=== PATIENT | male | born 1965 | race Caucasian/White ===

== ENCOUNTER 2018-10-28 10:36 | Emergency (ER) | payer OTHER, SELFPAY ==
[2018-10-28 10:44] VITALS: BP 144/97; PULSE 73; RESP 16; TEMP 36.6; O2SAT 98
--- NOTE | 2018-10-28 10:48 | DI.RAD_ITS ---
SYMPTOMS/DIAGNOSIS: RIGHT RIB PAIN S/P FALL PA CHEST AND RIGHT RIBS: There are no prior comparison exams. The heart size is at the upper limits of normal. The aorta appears tortuous. The lungs are clear. No pneumothorax is seen. A marker was placed over the lower right ribs in the area of the patient' s pain posteriorly. There is suboptimal penetration of the lower ribs. On one oblique view, there is a nondisplaced fracture of the 11th rib and a question of a fracture of the anterior 7th rib. IMPRESSION: Nondisplaced fractures of the right 11th and 7th ribs. No evidence of pneumothorax.
[2018-10-28] MEDS: HYDROcodone 5/Acetaminophen 325 TAB PO (10:50)
[2018-10-28] MEDS: Lidocaine 5% Patch 1 PATCH TP (11:00)
--- NOTE | 2018-10-28 11:05 | ED.GENADUL_ITS ---
Discharge Plan Disposition Patient Disposition: HOME Condition: Stable Discharge Details Chief Complaint: Chest/Rib Clinical Impression: Closed traumatic nondisplaced fracture of rib Primary Care Provider: Julita Garrett ED Provider: Brandon Rodríguez Home Meds and New Rx's Prescriptions: New hydrocodone-acetaminophen [[place]] 5-325 mg tablet 1 tab PO Q6H PRN (Reason: pain, severe) Qty: 8 RF: 0 lidocaine 5 % adhesive patch,medicated 1 patch TP Q12H PRN PRN (Reason: pain) Qty: 30 RF: 0 ibuprofen [IBU] 600 mg tablet 600 mg PO QID PRN (Reason: pain) Qty: 20 RF: 0 Discontinued ibuprofen 100 MG tablet 200 mg PO PRN RF: 0 Discharge Instructions Instructions: Rib Fracture (ED) Additional Instructions: Return immediately to the emergency department for any severe shortness of breath, difficulty breathing, fever chills, or worsening of symptoms. Otherwise take medication as prescribed and follow-up with your primary care provider as needed. Stand Alone Forms: Work Release Referrals: Julita Garrett [Primary Care Provider] - (As needed for reassessment) Discharge Data Discharge Date/Time-TO BE ENTERED AT DEPARTURE: 10/28/18 12:39 Medical Decision Making Patient presents the emergency department for right lateral rib pain after fall. Patient has tenderness to anterior posterior compression along with tenderness to mid axillary lower ribs approximately 7 through 10 with compression noting some mild crepitus felt. Lung sounds are clear throughout all lung ospina but plan on doing radiological imaging for concern of fracture. Pending results patient given lidocaine patch and [place]. Review of radiological imaging and speaking with the radiologist there seems to be possible nondisplaced fractures of ribs 7 and 11 that are only seen in one view. Given this finding along with some mild crepitus patient diagnosed with rib fracture nondisplaced, given prescription for limited opiate and lidocaine patches. Patient otherwise encouraged to utilize [id number] pain therapy as needed for discomfort. Patient given incentive spirometer and teaching in the emergency department and encouraged to return for any new or worsening symptoms. After discussion of diagnosis and plan of care patient has no further needs, questions, or concerns and states clear understanding to return to the emergency department for any worsening symptoms. HPI General Mode of arrival: ambulatory . Date/Time Provider Initiated Documentation: 10/28/18 10:37 . Limitations to Documentation: no limitations . Information obtained by: patient and RN notes reviewed . History of Present Illness 52 year old M presents to the emergency department with the chief complaint of fall with right rib pain, described as moderate, with intensity rated at 4. Quality is described as aching, and is localized to the chest (right ribs) . and it has been constant. No relieving factors improve symptom(s), Movement worsens symptoms (And deep breathing) . Patient notes no other symptoms.. Patient did receive the following treatments prior to arrival, none Related Data Home Medications Medication Instructions Recorded Confirmed hydrocodone-acetaminophen [[place]] 1 tab PO Q6H PRN #8 tab 10/28/18 ibuprofen [IBU] 600 mg PO QID PRN #20 tab 10/28/18 lidocaine 1 patch TP Q12H PRN PRN #30 each 10/28/18 Previous Rx's Medication Instructions Recorded hydrocodone-acetaminophen [[place]] 1 tab PO Q6H PRN #8 tab 10/28/18 ibuprofen [IBU] 600 mg PO QID PRN #20 tab 10/28/18 lidocaine 1 patch TP Q12H PRN PRN #30 each 10/28/18 Allergies Allergy/AdvReac Type Severity Reaction Status Date / Time No Known Allergies Allergy Unverified 10/28/18 10:47 General Stated Complaint: Chest/Rib ANTONIO: 3 Review of Systems Constitutional Denies chills, Denies fever(s), Denies frequent falls and Denies headache(s) ENT Denies vertigo, Denies dizziness and Denies headache(s) Cardiovascular Reports as per HPI, Reports chest pain (Right side), Denies syncope, Denies rapid heart rate and Denies irregular heart rhythm Respiratory Reports as per HPI, Reports pain on inspiration and Reports pain with cough Neurologic Denies confusion, Denies vertigo, Denies dizziness, Denies syncope, Denies frequent falls and Denies headache(s) Psychiatric Denies confusion PFSH Jugular vein thrombosis Tobacco abuse Colonoscopy - MAC (12/26/17) Medical History Jugular vein thrombosis Tobacco abuse Social History Smoking/Tobacco Use Status: Current every day Surgical History Colonoscopy - MAC (12/26/17) Social History Smoking/Tobacco Use Status: Current every day Exam Const General: cooperative, no acute distress and not ill appearing Orientation: alert, awake and oriented x3 HENMT Mouth: moist mucous membranes Chest Chest: localized rib tenderness with anteroposterior compression (right mid axillary 7 through 11) Resp Effort & Inspection: normal respiratory effort, able to speak in complete sentences, not labored, no paradoxical thoraco-abdom movements, no respiratory distress and not tachypneic Auscultation: clear to auscultation bilaterally Cardio Rate: regular rate Rhythm: regular rhythm Heart Sounds: S1 normal and S2 normal Skin General skin exam: no rashes or lesions noted Neuro General: alert, awake, oriented x3, moves all extremities and no focal motor deficits Sensory Exam: no sensory deficits noted Course Vital Signs Temperature 36.6 C 10/28/18 10:44 Pulse 73 10/28/18 10:44 Respiratory Rate 16 10/28/18 10:44 Blood Pressure 144/97 H 10/28/18 10:44 Pulse Oximetry 98 10/28/18 10:44 Temperature 36.6 C 10/28/18 10:44 Temperature Source Skin 10/28/18 10:44 Pulse 73 10/28/18 10:44 Respiratory Rate 16 10/28/18 10:44 Respiratory Effort Non-Labored 10/28/18 10:48 Respiratory Depth Normal 10/28/18 10:48 Respiratory Pattern Normal 10/28/18 10:48 Blood Pressure 144/97 H 10/28/18 10:44 Blood Pressure Position Sitting 10/28/18 10:44 Pulse Oximetry 98 10/28/18 10:44 Oxygen Delivery Method Room Air 10/28/18 10:44 Oxygen Flow Rate 0 10/28/18 10:44 Pain Level 8 10/28/18 10:48
== END 2018-10-28 12:39 | disposition home or self-care (01) ==
PROVIDERS: Emergency Provider Nurse Practitioner Family; PCP Nurse Practitioner Family
DX: S22.31XA Fracture of one rib, right side, initial encounter for closed fracture (principal); W00.0XXA Fall on same level due to ice and snow, initial encounter
CPT/HCPCS: 99283; 71046; 71100

== ENCOUNTER 2021-06-08 03:04 | Outpatient (CLI) | payer OTHER, SELFPAY ==
--- NOTE | 2021-06-08 | DI.RAD_ITS ---
Exam(s) XR SHOULDER RT COMPLETE 2+V EXAM: XR SHOULDER RT COMPLETE 2+V CLINICAL HISTORY: RT SHOULDER PAIN, M25.511. TECHNIQUE: 2D digital imaging was performed. COMPARISON: CR XR ribs RT PA chest 3V from 10/28/2018 CR XR ribs RT PA chest 3V from 10/28/2018 FINDINGS: BONES: No acute fracture is present. No bony destructive lesion is seen. An old right rib fracture is seen. JOINTS: No dislocation present. There is severe narrowing of the glenohumeral joint space, with a juanjose ne-on-bone appearance. There is spurring and sclerosis at the glenoid. Subchondral cysts are seen i n the humeral head and glenoid. There is mild spurring at the AC joint. Humeral head appears normal ly positioned. SOFT TISSUE: Normal. No soft tissue or joint space calcifications. Visualized portions of the right lung are clear peer IMPRESSION: Severe degenerative changes of the glenohumeral joint. DATA REPOSITORY: RADIATION DOSE DELIVERED:
== END 2021-06-08 03:24 ==
PROVIDERS: PCP Nurse Practitioner Family; Visit Provider Physician Assistant
DX: M19.011 Primary osteoarthritis, right shoulder (principal)
CPT/HCPCS: 73030

== ENCOUNTER 2021-12-25 22:08 | Outpatient (REF) | payer OTHER, SELFPAY ==
[2021-12-25 16:49] LABS: ALT 30 U/L (16-63); AST 24 U/L (15-37); Alkaline Phosphatase 59 U/L (46-116); Anion Gap 11.1 mmol/L (3-11); BUN 13 mg/dL (7-18); Bilirubin, Total 0.6 mg/dL (0.2-1.0); CO2 22.9 mmol/L (21.0-32.0); CREATININE 0.7 mg/dL (0.70-1.30); Calculated LDL 137 mg/dL (<100); Chloride 104 mmol/L (98-107); Cholesterol 222 mg/dL (<200); Glucose 85 mg/dL (74-106); HDL Cholesterol 65 mg/dL (40-60); Potassium 4.4 mmol/L (3.5-5.1); Sodium 138 mmol/L (136-145); Total Protein 7.1 g/dL (6.4-8.2); Triglyceride 102 mg/dL (<150)
[2021-12-25 23:07] LABS: PSA, Screening 1.2 ng/mL (0.0-3.5)
== END 2021-12-25 22:09 | disposition home or self-care (01) ==
LOC: NCHCN 22:08
PROVIDERS: PCP Nurse Practitioner Family; Visit Provider Physician Assistant
DX: Z00.00 Encounter for general adult medical examination without abnormal findings (principal); Z12.5 Encounter for screening for malignant neoplasm of prostate
CPT/HCPCS: 80053; 80061; 84153

== ENCOUNTER 2023-07-03 12:15 | Day surgery (SDC) | payer OTHER, SELFPAY ==
--- NOTE | 2023-07-02 18:05 | W.PM.DSUDISC ---
Date of service: 07/03/23 Time of Service: 13:54 Discharge Plan Disposition Patient Disposition: Home Condition: Good Discharge Details Reason For Visit: screening colonoscopy Attending Provider: Bebeto Stallings Primary Care Provider: Julita Garrett Home Meds and New Rx's Prescriptions: Continued atorvastatin 20 mg tablet 20 mg PO QHS Discontinued bisacodyl [Dulcolax (bisacodyl)] 5 mg tablet,delayed release (DR/EC) 5 mg PO ONCE Qty: 4 0RF Rx Instructions: Take per colonoscopy instructions provided by ordering providers office polyethylene glycol 3350 17 gram/dose powder 17 g PO ONCE Qty: 238 0RF Rx Instructions: Take per colonoscopy instructions provided by ordering providers office Discharge Instructions Instructions: Colorectal Polyps (GEN) Additional Instructions: Patient who, we were able to finish your colonoscopy today without any difficulty. The quality of your prep was excellent. I did find a total of 4 polyps. There was a small cluster of 3 of them about 100 cm from your anus. And 1 other singular polyp at 25 cm from your anus. All of these were relatively small. I removed them all completely. I will be in touch when I have the report from the pathology testing regarding my final recommendations. 1. If tolerated, consume a soft, low fiber diet for 1-2 days. 2. Do not drive, drink alcohol, operate machinery, make critical decisions, or do activities that require coordination or balance for 24 hours. 3. Because air was put into your colon during the procedure, expelling air from your rectum (passing gas or farting) is normal. 4. You may not have a bowel movement for 1-3 days because of the colonoscopy prep. This is normal. 5. Go directly to the emergency room if you notice any of the following: Develop chills (warm to touch), or if you have a thermometer and your temperature is above 101 Difficulty breathing or difficultly swallowing Persistent vomiting Severe abdominal pain, other than gas cramps Severe chest pain Black, tarry stools Any bleeding ? exceeding one tablespoon 6. Call your physician if the site where your intravenous was started becomes red, swollen, painful, and warm to touch. 7. Your physician has reviewed your pre-procedure medications. Please continue to take those medications as previously ordered. You will be given specific information/education regarding any changes to your medications before leaving. Stand Alone Forms: Anesthesia Discharge InstHoracio, Sera Beckford (DSU) Activity:: Activity as Tolerated Diet:: As Tolerated Discharge Orders Discharge Orders: Discharge Order (Routine); Ordered 07/02/23 Ordered By: Bebeto Stallings Discharge Data Discharge Date/Time-TO BE ENTERED AT DEPARTURE: 07/03/23 14:40 DS: Diagnosis Discharge Diagnosis (1) Screening for colon cancer: Status: Acute Asessment and Plan: I will follow-up on polypectomy results
--- NOTE | 2023-07-02 18:07 | W.COLOREPORT ---
Date of service: 07/03/23 Time of Service: 13:58 Colonoscopy Report Date of procedure: 07/03/23 Pre-op diagnosis general: Screening colonoscopy Post-op diagnosis procedure note: other (Colon polyps) Procedure: Colonoscopy with polypectomy Surgeon: Bebeto Stallings Anesthesia Type: General:No Airway Estimated blood loss (mL): 10 Pathology: other (3 colon polyps at 100 cm, 1 polyp at 25 cm) Complications: None Disposition: same day Indications: Servando is a 57-year-old male who is here for his next screening colonoscopy. Prep: Miralax/Dulcolax Procedure Start Time: : Procedure End Time: 13:45 Retraction Time: 18 Findings: 3 sessile polyps ranging from 0.25 cm to 0.5 cm all at 100 cm from the anus; 0.25 cm polyp at 25 cm Procedure Description: After the induction of monitored anesthetic care, and with the patient in left lateral decubitus position, I began by performing an external anorectal exam.? Perineum and skin were normal, as was the anal verge.? There was no evidence of external hemorrhoids.? Next, I performed a digital rectal exam.? I did not appreciate any abnormal findings.? Next, I advanced a colonoscope into the rectal vault.? I performed retroflexion.? This appeared normal.? Using insufflation, I then advanced the colonoscope beyond the rectal folds and into the sigmoid colon before advancing towards the cecum.? The quality of the prep was excellent.? The scope was noted to be in the cecum by identification of the ileocecal valve and appendiceal orifice.? I then began withdrawing the colonoscope using repeated irrigation as necessary for full evaluation of the colonic mucosa. Around 100 cm from the anus was a 0.5 cm sessile, but slightly pedunculated polyp. I removed this with cold snare polypectomy. In the same area were 2 other polyps. Both were less than 0.5 cm. Both were removed with cold forcep polypectomy. All of the specimens were sent together. There was minimal bleeding from any of the sites. Around 25 cm from the anal verge I identified a 0.25 cm polyp. ?It appeared sessile in character. ?I was able to remove this with a cold forcep polypectomy. ?I examined the site, and there was minimal bleeding. ?Once this was completed, I continued to withdraw the scope and examine the remainder of the colonic mucosa. Once the scope was withdrawn to the level of the rectum, great care was taken to examine portions of the rectal folds.? Finally, the scope was withdrawn and the patient was brought to the same-day surgery recovery unit as the anesthetic wore off. ?The findings and instructions were shared with the patient prior to discharge.
--- NOTE | 2023-07-03 08:47 | W.ANESPRE ---
General Info Date of Service Date Performed: 07/03/23 Height: 5 ft 11 in Weight: 86.183 kg Body Mass Index (BMI): 26.4 Surgical Procedure: Operation Date: 07/03/23 14:05 Proposed Procedure Side Surgeon p Colonoscopy Bebeto Stallings MD Meds Allergies and Home Medications Allergies Allergy/AdvReac Type Severity Reaction Status Date / Time No Known Allergies Allergy Verified 07/03/23 12:29 Home Medication Medication Instructions Recorded atorvastatin 20 mg tablet 20 mg PO QHS 06/26/23 Current Visit Medications: Current Medications Generic Name Dose Route Start Last Admin Trade Name Freq PRN Reason Stop Dose Admin Hyoscyamine Sulfate 0.125 mg 07/02/23 18:07 Hyoscyamine 0.125 Mg Sl/Oral/Chew SL 08/01/23 18:06 DIRECTED PRN Ringer's Solution 1,000 mls @ 80 mls/hr 07/03/23 06:00 IV 07/24/23 23:59 INFUSION YEIMI IV Miscellaneous Supplies 1 each 07/03/23 06:00 Iv Access IV 07/24/23 23:59 DIRECTED YEIMI Ondansetron HCl 4 mg 07/02/23 18:07 Ondansetron 4 Mg/2 Ml Vial IVP 08/01/23 18:06 Q4H PRN PRN Nausea / Vomiting Sodium Chloride 0 ml 07/03/23 06:00 Normal Saline Flush 10 Ml Syr IV 07/24/23 23:59 PRN PRN Sodium Chloride 0 ml 07/03/23 06:00 Normal Saline 10 Ml Vial IJ 07/24/23 23:59 DIRECTED PRN Sterile Water 0 ml 07/03/23 06:00 Water,Injection,Sterile 10 Ml Vial IJ 07/24/23 23:59 DIRECTED PRN PFSH Active Problems Active Problems: Problem Status Onset Code Screening for colon cancer Z12.11 Nicotine dependence F17.200 Medical History Medical History (Updated 07/01/23 @ 14:14 by Glynn Neil) DVT (deep venous thrombosis) (~2017) Jugular vein thrombosis Right shoulder pain Thrombosis of right internal jugular vein 2018 Tobacco abuse Surgical History Surgical History Colonoscopy - MAC (12/26/17) Tobacco Smoking/Tobacco Use Status: Current every day Tobacco Type: cigarettes Alcohol Alcohol Intake: current Alcohol intake frequency: 3 or more drinks per day Details: 6 pack/day; Weekends >6/day Substance Use Substance use: Daily Substance use type: marijuana Vital Signs and Lab Results Vital Signs Most Recent Vital Signs in EMR: Temp Pulse Resp BP Pulse Ox 36.2 C L 92 H 18 128/92 H 93 07/03/23 12:31 07/03/23 12:31 07/03/23 12:31 07/03/23 12:31 07/03/23 12:31 Lab Results Blood Type / Crossmatch: No Data to Display Complete Blood Count: No Data to Display Complete Metabolic Panel: No Data to Display Liver Function Panel: No Data to Display Coagulation Panel: No Data to Display Cardiac Panel: No Data to Display Arterial Blood Gas: No Data to Display Venous Blood Gas: No Data to Display Pancreas Panel: No Data to Display Thyroid Panel: No Data to Display Infectious Disease: No Data to Display Blood Cultures: No Data to Display Toxicology Panel: No Data to Display Anesthesia Assessment and Plan Anesthesia History Personal History: No History of Anesthesia Complications Family History: No Family History of Anesthesia Complications Exercise Tolerance Exercise Tolerance: Metabolic Equivalents>4 Cardiac & Pulmonary Exam Cardiac Exam: Normal S1/S2 Heart Sounds Pulmonary Exam: Clear Bilateral Breath Sounds Implantable Cardiac Device Does patient have a Pacemaker or an ICD?: No Airway Exam Known Difficult Airway: No Mallampati Class: 2 Mouth Opening: Narrow (< 3cm) Thyromental Distance: Greater than 3 cm Neck Range of Motion: Limited ROM Neck Circumference: Normal Teeth Condition: Normal Dentition ASA Classification ASA Score: ASA 2 Emergency Case?: No NPO Status NPO Status: NPO Clears >2 hours, Solids >8 hours Anesthesia Plan Resuscitation Status: Full Code Anesthesia Technique: General Anesthesia Airway Planned: Natural Airway Monitors Used: Standard Monitors Preoperative Comments:: 57 yo male for colo. Sig PMHx: DVT/jugular thrombosis (followed by [facility] [place], as needed), smoker, daily EtOH/cannabis. Previous Anes: - prop, natural airway, no issues. - [facility], Mac 4, grade 3 (2 attempts, stated due to distortion due to neck mass), easy mask.
[2023-07-03 12:19] VITALS: BP 128/92; PULSE 92; RESP 18; TEMP 36.2; O2SAT 93
[2023-07-03 12:59] VITALS: BMI 26.4
[2023-07-03] MEDS: Lactated Ringers 1,000 ML 80 ML IV (13:10)
--- NOTE | 2023-07-03 13:40 | BOWEL_PTH ---
PATIENT: Servando Julio LOC: [facility] U#:[id number] AGE/SX: 57/M ROOM: RE07/03/[address]: Bebeto Stallings MD : [id number] BED: DIS: 07/03/2023 SPEC #: [id number] RECD: 07/03/23 15:53 STATUS: MOIRA REQ #: [id number] JAILENE: 07/03/23 13:[address]: Bebeto Stallings DEPT: Surgical Specimen RECD BY: Brigida Flynn ENTERED: 07/03/23 15:54 SP TYPE: Bowel OTHR DR: Julita Garrett Tissues: 1 - BIOPSY BOWEL 2 - BIOPSY BOWEL Procedures: GROSS AND MICRO LEVEL 4 Comments: [id number]
[2023-07-03 13:51] VITALS: BP 98/73; PULSE 88; RESP 16; TEMP 36; O2SAT 96
--- NOTE | 2023-07-03 13:56 | W.ANESPOSTOP ---
Postoperative Evaluation Date, Time and Location Date Performed: 07/03/23 Time Performed: 13:56 Patient Location: Day Surgery Unit Vital Signs Most Recent Imported Vital Signs: Most Recent Vital Signs Temp Pulse Resp BP Pulse Ox 36 C L 88 16 98/73 L 96 07/03/23 13:51 07/03/23 13:51 07/03/23 13:51 07/03/23 13:51 07/03/23 13:51 Pain Score Most Recent Pain Score: Most Recent Pain Score Pain Level 0 07/03/23 13:51 Assessment Mental Status: Awake (Alert & Oriented to Patient Baseline) Airway and Respiratory Function: Patent airway with normal (patient baseline) respiratory exam Cardiovascular Function: Hemodynamically Stable Hydration Status: Adequately Hydrated Nausea & Vomiting: No Nausea or Vomiting Pain: Pt. Denies Any Pain Peripheral Nerve Block: Patient did not receive a nerve block
[2023-07-03 14:24] VITALS: BP 158/80; PULSE 62; RESP 18; TEMP 36.1; O2SAT 96
== END 2023-07-03 14:40 | disposition home or self-care (01) ==
PROVIDERS: PCP Nurse Practitioner Family; Visit Provider Surgery
PROC: 0DJD8ZZ Inspection of Lower Intestinal Tract, Via Natural or Artificial Opening Endoscopic (ICD-10-PCS; CPT 45378; principal; 2023-07-03 14:00)
DX: Z12.11 Encounter for screening for malignant neoplasm of colon (principal); D12.3 Benign neoplasm of transverse colon
CPT/HCPCS: 45380; 88305

== ENCOUNTER 2023-09-12 20:32 | Outpatient (REF) | payer OTHER, SELFPAY ==
[2023-09-12 16:55] LABS: ALT 40 U/L (16-63); AST 41 U/L (15-37); Albumin 3.8 g/dL (3.4-5.0); Alkaline Phosphatase 74 U/L (46-116); Anion Gap 12.5 mmol/L (3-11); BUN 9 mg/dL (7-18); Bilirubin, Total 0.4 mg/dL (0.2-1.0); CO2 22.5 mmol/L (21.0-32.0); CREATININE 0.9 mg/dL (0.70-1.30); Calcium 9.2 mg/dL (8.5-10.1); Calculated LDL 103 mg/dL (<100); Chloride 108 mmol/L (98-107); Cholesterol 176 mg/dL (<200); Estimated GFR 100.24 (mL/min/1.73m2); Glucose 102 mg/dL (74-106); HDL Cholesterol 57 mg/dL (40-60); Potassium 4.4 mmol/L (3.5-5.1); Sodium 143 mmol/L (136-145); Total Protein 6.9 g/dL (6.4-8.2); Triglyceride 83 mg/dL (<150)
[2023-09-15 09:39] LABS: PSA, Screening 1.3 ng/mL (<=3.5)
== END 2023-09-12 20:33 | disposition home or self-care (01) ==
LOC: NCHCN 20:32
PROVIDERS: PCP Nurse Practitioner Family; Visit Provider Physician Assistant
DX: Z12.5 Encounter for screening for malignant neoplasm of prostate (principal); Z00.00 Encounter for general adult medical examination without abnormal findings; F17.210 Nicotine dependence, cigarettes, uncomplicated
CPT/HCPCS: 80053; 80061; 84153

== ENCOUNTER 2024-10-20 13:41 | Outpatient (REF) | payer BC, SELFPAY ==
[2024-10-20 14:56] LABS: HGB 14.3 g/dL (13.5-17.5); MCH 34.8 pg (27.0-33.0); MCHC 34.9 % (32.0-36.0); MCV 100 fL (80-95); MPV 11.7 fL (8.0-11.0); Platelet Count 257 10^3/uL (130-400); RBC 4.11 10^6/uL (4.36-5.78); RDW 13.3 % (11.8-14.1); RDW-SD 49.6 fL; WBC 6.26 10^3/uL (4.4-10.8)
[2024-10-20 15:42] LABS: ALT 38 U/L (16-63); AST 39 U/L (15-37); Albumin 3.7 g/dL (3.4-5.0); Alkaline Phosphatase 71 U/L (46-116); Anion Gap 9.2 mmol/L (3-11); BUN 11 mg/dL (7-18); Bilirubin, Total 0.52 mg/dL (0.2-1.0); CO2 22.8 mmol/L (21.0-32.0); CREATININE 0.9 mg/dL (0.70-1.30); Calcium 8.9 mg/dL (8.5-10.1); Calculated LDL 97 mg/dL (<100); Chloride 105 mmol/L (98-107); Cholesterol 185 mg/dL (<200); Estimated GFR 99.62 (mL/min/1.73m2); Glucose 99 mg/dL (74-106); HDL Cholesterol 63 mg/dL (40-60); Potassium 4.5 mmol/L (3.5-5.1); Sodium 137 mmol/L (136-145); Total Protein 6.9 g/dL (6.4-8.2); Triglyceride 125 mg/dL (<150)
[2024-10-20 23:09] LABS: PSA, Screening 1.4 ng/mL (<=3.5)
== END 2024-10-20 13:42 | disposition home or self-care (01) ==
LOC: NCHCN 13:41
PROVIDERS: PCP Physician Assistant; Visit Provider Physician Assistant
DX: Z12.5 Encounter for screening for malignant neoplasm of prostate (principal); E78.5 Hyperlipidemia, unspecified; F17.210 Nicotine dependence, cigarettes, uncomplicated
CPT/HCPCS: 80053; 80061; 84153; 85027

== ENCOUNTER 2025-10-03 14:12 | Outpatient (REF) | payer BC, SELFPAY ==
[2025-10-03 16:01] LABS: ALT 42 U/L (16-63); AST 32 U/L (15-37); Albumin 4.0 g/dL (3.4-5.0); Alkaline Phosphatase 78 U/L (46-116); Anion Gap 11.2 mmol/L (3-11); BUN 14 mg/dL (7-18); Bilirubin, Total 0.4 mg/dL (0.2-1.0); CO2 24.8 mmol/L (21.0-32.0); Calcium 9.1 mg/dL (8.5-10.1); Chloride 104 mmol/L (98-107); Cholesterol 250 mg/dL (<200); Glucose 91 mg/dL (74-106); HDL Cholesterol 58 mg/dL (>or=40); Potassium 4.6 mmol/L (3.5-5.1); Sodium 140 mmol/L (136-145); Total Protein 7.4 g/dL (6.4-8.2)
[2025-10-04 00:33] LABS: PSA, Screening 1.7 ng/mL (<=3.5)
== END 2025-10-03 14:13 | disposition home or self-care (01) ==
LOC: NCHCN 14:12
PROVIDERS: PCP Physician Assistant; Visit Provider Physician Assistant
DX: E78.5 Hyperlipidemia, unspecified (principal); Z12.5 Encounter for screening for malignant neoplasm of prostate
CPT/HCPCS: 80053; 80061; 84153